=== PATIENT | female | born 1995 | race Two or more races ===

== ENCOUNTER 2024-12-06 09:38 | Emergency (ER) | payer BC, OTHER ==
[~2024-12-06] VITALS: Ht 165.1 cm; Wt 69.5 kg
[2024-12-06 10:21] VITALS: BP 119/85; PULSE 90; RESP 18; TEMP 98.4; O2SAT 96
[2024-12-06 11:20] LABS: Urine Protein, UAD Negative (Negative)
== END 2024-12-06 11:03 | disposition left against medical advice (07) ==
LOC: ER 09:38
DX: R10.9 Unspecified abdominal pain (principal); Z53.21 Procedure and treatment not carried out due to patient leaving prior to being seen by health care provider
CPT/HCPCS: 81001

== ENCOUNTER 2024-12-08 06:35 | Emergency (ER) | payer BC ==
[~2024-12-08] VITALS: Ht 165.1 cm; Wt 66.5 kg
--- NOTE | 2024-12-08 06:58 | ED.PDOC ---
History of Present Illness HPI Comments A 29 YEAR-OLD FEMALE PRESENTS TO THE ED WITH A CHIEF COMPLAINT OF PELVIC PAIN OF X3-4 DAYS AGO. PATIENT REPORTS THERE IS A POSSIBILITY OF . PATIENT STATES THAT SHE HAS A HISTORY OF CRAMPING WITH HER LMP NOTED 11/10/24. PATIENT STATES THAT PELVIC PAIN IS "SHARP", EXACERBATED WITH MOVEMENT, AND ASSOCIATED WITH URINARY RETENTION. PATIENT CAME TO THE ED X2 DAYS AGO FOR PELVIC PAIN BUT LEFT BEFORE MEETING WITH A PHYSICIAN. PATIENT HAS NO FURTHER COMPLAINTS AT THIS TIME AND OTHERWISE DENIES DYSURIA, HEMATURIA, N/V, FEVER, OR CHILLS. PATIENT IS ALERT, ORIENTED X 4, AND HAS STEADY GAIT. Chief Complaint: Pelvic Pain Time Seen by MD: 06:50 Reviewed Notes: Nurses Notes, Medications, Allergies Allergies: Coded Allergies: NO KNOWN ALLERGIES (Unverified , 12/06/24) Information Source: Patient Mode of Arrival: Ambulatory Severity: Mild Timing: Days Duration: Since onset Location: PELVIS Worsens MOVEMENT Associated signs and symptoms URINARY RETENTION, PELVIC PAIN Past Medical History PAST MEDICAL HISTORY: Denies Surgical History: Denies all surgeries DATA MANAGEMENT CONSULTANT History: No Pertinent DATA MANAGEMENT CONSULTANT History Family History Family History: Reviewed,noncontributory to illness, No family hx of Cancer, No family hx of DM, No family hx of Heart sixto, No family hx of HTN, No family hx ofKidney sixto, No family hx of Liver sixto, No family hx of Lung sixto, No family hx of Stroke Social History Smoker: Non-Smoker Alcohol: Denies ETOH Use Drugs: Denies Drug Use Lives In: Home Constitutional: denies: chills, diaphoresis, fatigue, fever, malaise, sweats, weakness, others EENTM: denies: blurred vision, double vision, ear bleeding, ear discharge, ear drainage, ear pain, ear ringing, eye pain, eye redness, hearing loss, mouth pain, mouth swelling, nasal discharge, nose bleeding, nose congestion, nose pain, photophobia, tearing, throat pain, throat swelling, voice changes, others Respiratory: denies: cough, hemoptysis, orthopnea, SOB at rest, shortness of breath, SOB with excertion, stridor, wheezing, others Cardiovascular: denies: chest pain, dizzy spells, diaphoresis, Dyspnea on exertion, edema, irregular heart beat, left arm pain, lightheadedness, palpitations, PND, syncope, others Gastrointestinal: denies: abdomen distended, abdominal pain, blood streaked bowels, constipated, diarrhea, dysphagia, difficulty swallowing, hematemesis, melena, nausea, poor appetite, poor fluid intake, rectal bleeding, rectal pain, vomiting, others Genitourinary: reports: pain (PELVIC PAIN ), others (Urinary Retention ); denies: abnormal vagina bleeding, burning, dyspareunia, dysuria, flank pain, frequency, hematuria, incontinence, , vagina discharge, urgency Neurological: denies: dizziness, fainting, headache, left sided numbness, left sided weakness, numbness, paresthesia, pre-existing deficit, right sided numbness, right sided weakness, seizure, speech problems, tingling, tremors, weakness, others Musculoskeletal: denies: back pain, gout, joint pain, joint swelling, muscle pain, muscle stiffness, neck pain, others Integumetry: denies: bruises, change in color, change in hair/nails, dryness, laceration, lesions, lumps, rash, wounds, others Allergic/Immunocompromised: denies: Difficulty Healing, Frequent Infections, Hives, Itching, others Hematologic/Lymphatic: denies: anemia, blood clots, easy bleeding, easy bruising, swollen glands, others Endocrine: denies: excessive hunger, excessive sweating, excessive thirst, excessive urination, flushing, intolerance to cold, intolerance to heat, unexplained weight gain, unexplained weight loss, others Psychiatric: denies: anxiety, bipolar disorder, depression, hopeless, panic disorder, schizophrenia, sleepless, suicidal, others All Other Systems: Reviewed and Negative Physical Exam General Appearance: No Apparent Distress, Normal HEENT: Normal ENT Inspection, PERRL/EOMI, Pharynx Normal, TMs Normal Neck: Full Range of Motion, Non-Tender, Normal, Normal Inspection Respiratory: Chest Non-Tender, Lungs Clear, No Accessory Muscle Use, No Respiratory Distress, Normal Breath Sounds Cardiovascular: No Edema, No JVD, No Murmur, No Gallop, Normal Peripheral Pulses, Regular Rate/Rhythm Breast Exam: Deferred Gastrointestinal: No Organomegaly, Non Tender, No Pulsatile Mass, Normal Bowel Sounds, Soft Genitalia: Deferred Pelvic: Normal External Exam, Tender Adnexa (TENDERNESS PELVIC, NO GUARDING AND REBOUND TENDERNESS. ), Tender Uterus Rectal: Deferred Extremities: No calf tenderness, Normal capillary refill, Normal inspection, Normal range of motion, Non-tender, No pedal edema Musculoskeletal : Apperance: Normal Neurologic: Alert, kettle operator II-XII nml as Tested, No Motor Deficits, Normal Affect, Normal Mood, No Sensory Deficits Cerebellar Function: Normal Reflexes: Normal Skin: Dry, Normal Color, Warm Peripheral Pulses: 2+ carotid (R), 2+ carotid (L) Lymphatic: No Adenopathy Was a procedure done? Was a procedure done?: No Differential Dx Considerations may include: , CRAMPING, UTI, URINARY RETENTION X-Ray, Labs, Meds, VS Vital Signs Date Time Temp Pulse Resp B/P (MAP) Pulse Ox O2 Delivery O2 Flow Rate FiO2 12/08/24 07:47 83 16 99 Room Air* 0 21 12/08/24 07:47 98.5 83 16 131/78 (95) 99 98.5 12/08/24 06:54 98.4 97 18 110/84 (93) 99 98.4 Lab Test 12/08/24 07:00 12/08/24 06:40 Range/Units White Blood Count 7.9 4.4-10.8 10^3/uL Red Blood Count 4.62 4.0-5.20 10^6/uL Hemoglobin 14.6 12.2-16.2 g/dL Hematocrit 41.9 36.0-46.0 % Mean Corpuscular Volume 90.8 80.0-100.0 fL Mean Corpuscular Hemoglobin 31.7 28.0-32.0 pg Mean Corpuscular Hemoglobin Concent 34.9 32.0-36.0 g/dL Red Cell Distribution Width 12.8 11.8-14.3 % Platelet Count 273 140-450 10^3/uL Mean Platelet Volume 8.3 6.9-10.8 fL Neutrophils (%) (Auto) 60.8 37.0-80.0 % Lymphocytes (%) (Auto) 28.8 10.0-50.0 % Monocytes (%) (Auto) 7.5 0.0-12.0 % Eosinophils (%) (Auto) 1.8 0.0-7.0 % Basophils (%) (Auto) 1.1 0.0-2.0 % Neutrophils # (Auto) 4.8 1.6-8.6 10 ^3/uL Lymphocytes # (Auto) 2.3 0.4-5.4 10 ^3/uL Monocytes # (Auto) 0.6 0-1.3 10 ^3/uL Eosinophils # (Auto) 0.1 0-0.8 10 ^3/uL Basophils # (Auto) 0.1 0-0.2 10 ^3/uL Nucleated Red Blood Cells 0.0 % Sodium Level 138 136-145 mmol/L Potassium Level 3.8 3.5-5.1 mmol/L Chloride Level 104 98-107 mmol/L Carbon Dioxide Level 26 20-31 mmol/L Anion Gap 8 5-15 Blood Urea Nitrogen 7 L 9-23 mg/dL Creatinine 0.72 0.550-1.02 mg/dL Glomerular Filtration Rate Calc 116 >90 mL/min BUN/Creatinine Ratio 9.7 L 10.0-20.0 Serum Glucose 90 74-106 mg/dL Calcium Level 10.1 8.7-10.4 mg/dL Beta HCG, Quantitative 1446.7 H 1.5-4.2 mIU/mL Urine Color Colorless Yellow Urine Clarity Clear Clear Urine pH 7.5 5.0-9.0 Urine Specific [place] 1.006 1.001-1.035 Urine Protein Negative Negative Urine Ketones Negative Negative Urine Blood Negative Negative /uL Urine Nitrite Negative Negative Urine Bilirubin Negative Negative Urine Urobilinogen Normal Negative mg/dL Urine Leukocyte Esterase 3+ Negative /uL Urine RBC 1 0 - 4 /hpf Urine Microscopic WBC 10 H 0-5 /HPF Urine Squamous Epithelial Cells Few <5 /hpf Urine Bacteria Few H None Seen /hpf Urine Glucose Normal Normal mg/dL PATIENT: FERNIE RICKETTSACCT: [id number]: [id number] : 1995 LOC: ER ROOM / BED: / AGE / SEX: 29 / F ADM STATUS: REG ER SERVICE [id number] ORDERING PHYSICIAN: ZULMA YANG PROCEDURE(s): OB4US - OB ULTRASOUND COMP LESS 14WKS REASON: PELVIC PAIN, BETA-HC.7 ORDER NUMBER(s): [id number], ACCESSION NUMBER(s): [id number] EXAM: US OB ULTRASOUND COMP LESS 14WKS HISTORY: PELVIC PAIN, BETA-HC.7 COMPARISON: None TECHNIQUE: Transabdominal and transvaginal early OB ultrasound was performed. FINDINGS/IMPRESSION: 1. No evidence of viable intrauterine . There is endometrial thickening with small cystic structures of the endometrium. Recommend correlation with serial beta HCG measurements. If the patient's beta HCG increases, follow-up outpatient nonemergent ob ultrasound examination would be warranted. 2. Moderate volume free fluid in the pelvis. There is likely debris versus blood products in the pelvic fluid. 3. Both ovaries demonstrate normal color doppler blood flow. ATED BY: ISATU SIMON MD DICTATED DATE/TIME: 12/08/24830 SIGNED BY: ISATU SIMON MD SIGNED DATE/TIME: 12/08/24830 CC: X-Ray, Labs, Meds, VS Comment EXTERNAL MEDICAL RECORDS: NONE INDEPENDENT HISTORIANS: NONE SOCIAL DETERMINANTS OF HEALTH: NONE LABS ORDERED: URINALYSIS, BLOOD COUNT, METABOLIC PANEL, BETA HCG REVIEWED AND INTERPRETED RESULTS: NONE IMAGING ORDERED: OB ULTRASOUND TREATMENTS ORDERED: NONE PATIENT'S CASE AND RESULTS HAVE BEEN DISCUSSED WITH THE ED ATTENDING PHYSICIAN, DR. HUGHES AND THEY AGREE WITH MY PLAN OF CARE. I HAVE DISCUSSED IMAGING AND LAB RESULTS WITH THE PATIENT AND HAVE INSTRUCTED THE PATIENT TO FOLLOW UP WITH THEIR PCP IN 1-2 DAYS. THE PATIENT FULLY UNDERSTANDS THEIR RESULTS AND ARE AWARE THEY NEED TO FOLLOW UP WITH THEIR PCP FOR FURTHER EVALUATION IF THEIR SYMPTOMS PERSIST. Images Reviewed?: Images reviewed and evaluated by me Time of 1ST Reevaluation: 08:47 Reevaluation 1ST: Improved Patient Education/Counseling: Diagnosis, Treatment, Need For Follow Up Family Education/Counseling: Diagnosis, Treatment, Need For Follow Up Medical Screening: No EMC Exist At This Time SEPSIS Sepsis Screen Physician Orders Ob Ultrasound Comp Less 14wks (12/08/24 07:53) Vital Signs Date Time Temp Pulse Resp B/P (MAP) Pulse Ox O2 Delivery O2 Flow Rate FiO2 12/08/24 07:47 83 16 99 Room Air* 0 21 12/08/24 07:47 98.5 83 16 131/78 (95) 99 98.5 12/08/24 06:54 98.4 97 18 110/84 (93) 99 98.4 Laboratory Tests Test 12/08/24 07:00 White Blood Count 7.9 10^3/uL (4.4-10.8) Departure 1 Departure Time of Disposition: 09:00 Impression: Primary Impression: Early stage of Additional Impression: Acute cystitis Qualified Codes: N30.00 - Acute cystitis without hematuria Disposition: 01 HOME / SELF CARE / HOMELESS Condition: Stable Additional Instructions: FOLLOW-UP WITH WEB APPLICATION TESTER OR ER TO RECHECK BETA-HCG IN 2 DAYS. TAKE MEDICATIONS PRESCRIBED. RETURN TO ED FOR ANY NEW OR WORSENING SYMPTOMS. e-Prescriptions Nitrofurantoin Monohydrate Mac (Macrobid) 100 Mg Cap 100 MG PO BID, #14 CAP Prov: CELIABRICEXIA PA 12/08/24 Discharged With: Self Critical Care Note Critical Care Time?: No Stability Stability form required: No Heart Score Heart Score: Heart Score Response (Comments) Value History N/A 0 EKG N/A 0 Age N/A 0 Risk Factors N/A 0 Troponin N/A 0 Total 0 I personally scribed for CELIA,YINXIA PA ([email or web address]) on 12/08/24 at 06:58. Electronically submitted by Amelie Bowers ([email or web address]). I personally scribed for CELIA,YINXIA PA ([email or web address]) on 12/08/24 at 07:00. Electronically submitted by Amelie Bowers (Sik[employer]). I personally scribed for CELIA,YINXIA PA ([email or web address]) on 12/08/24 at 07:05. Electronically submitted by Amelie Bowers ([employer]). I personally scribed for CELIA,YINXIA PA ([email or web address]) on 12/08/24 at 07:20. Electronically submitted by Amelie Bowers ([employer]). I personally scribed for CELIA,YINXIA PA ([email or web address]) on 12/08/24 at 07:27. Electronically submitted by Amelie Bowers ([employer]). I personally scribed for CELIA,YINXIA PA ([email or web address]) on 12/08/24 at 07:37. Electronically submitted by Amelie Bowers ([employer]). I personally scribed for CELIA,YINXIA PA ([email or web address]) on 12/08/24 at 07:55. Electronically submitted by mAelie Bowers ([facility]). ZULMA YANG Dec 08, 2024 06:58
[2024-12-08 07:13] LABS: Hematocrit 41.9 % (36.0-46.0); Hemoglobin 14.6 g/dL (12.2-16.2); Mean Corpuscular Hemoglobin 31.7 pg (28.0-32.0); Mean Corpuscular Volume 90.8 fL (80.0-100.0); Nucleated Red Blood Cells % 0.0 %
[2024-12-08 07:30] LABS: Chloride 104 mmol/L (98-107); Potassium 3.8 mmol/L (3.5-5.1); Sodium 138 mmol/L (136-145)
[2024-12-08 07:31] LABS: Anion Gap 8 (5-15); Calcium 10.1 mg/dL (8.7-10.4); Carbon Dioxide 26 mmol/L (20-31)
[2024-12-08 07:36] LABS: BUN/Creatinine Ratio 9.7 (10.0-20.0); Glucose 90 mg/dL (74-106)
[2024-12-08 07:38] LABS: Blood Urea Nitrogen 7 mg/dL (9-23)
[2024-12-08 07:45] LABS: Urine Protein, UAD Negative (Negative)
[2024-12-08 07:47] VITALS: BP 131/78; PULSE 83; RESP 16; TEMP 98.5; O2SAT 99
--- NOTE | 2024-12-08 08:34 | DVH ---
EXAM: US OB ULTRASOUND COMP LESS 14WKS HISTORY: PELVIC PAIN, BETA-HC.7 COMPARISON: None TECHNIQUE: Transabdominal and transvaginal early OB ultrasound was performed. FINDINGS/IMPRESSION: 1. No evidence of viable intrauterine . There is endometrial thickening with small cystic s tructures of the endometrium. Recommend correlation with serial beta HCG measurements. If the patien t's beta HCG increases, follow-up outpatient nonemergent ob ultrasound examination would be warranted . 2. Moderate volume free fluid in the pelvis. There is likely debris versus blood products in the pelv ic fluid. 3. Both ovaries demonstrate normal color doppler blood flow.
[2024-12-08] MEDS ORDERED: NITR-87 PO (08:47)
== END 2024-12-08 08:45 | disposition home or self-care (01) ==
LOC: ER 06:35
DX: O23.11 Infections of bladder in pregnancy, first trimester (principal); R10.2 Pelvic and perineal pain; Z3A.00 Weeks of gestation of pregnancy not specified
CPT/HCPCS: 36415; 76801; 80048; 81001; 84702; 85025

== ENCOUNTER 2024-12-11 08:05 | Emergency (ER) | payer BC ==
[~2024-12-11] VITALS: Ht 165.1 cm; Wt 68.8 kg
[~2024-12-11 08:05] MED LIST: NITR-87 PO
--- NOTE | 2024-12-11 09:20 | ED.PDOC ---
History of Present Illness HPI Comments 29 year old female presents to the ED for the c/c of wanting to recheck her Beta Quant Levels. Pt states that she was recently told that she was on 11/08/24 and wanted to Re-check values to see if they were correct. Pt was noted to have a HCG Beta Quant level of 1446.7. Pt denies any ABD pain, Cramping, or Abnormal Vaginal Bleeding at this time. FINDINGS/IMPRESSION: From 11/08/24 1. No evidence of viable intrauterine . There is endometrial thickening with small cystic structures of the endometrium. Recommend correlation with serial beta HCG measurements. If the patient's beta HCG increases, follow-up outpatient nonemergent ob ultrasound examination would be warranted. 2. Moderate volume free fluid in the pelvis. There is likely debris versus blood products in the pelvic fluid. 3. Both ovaries demonstrate normal color doppler blood flow. Chief Complaint: Abnormal LAB's Time Seen by MD: 09:16 Primary Care Provider: Aysha Fairbanks Notes: Nurses Notes, Medications, Allergies Allergies: Coded Allergies: NO KNOWN ALLERGIES (Unverified , 12/06/24) Home Meds Active Scripts Nitrofurantoin Monohydrate Mac (Macrobid) 100 Mg Cap, 100 MG PO BID, #14 CAP Prov:ZULMA YANG 12/08/24 Information Source: Patient Mode of Arrival: Ambulatory Severity: None Timing: Days Duration: Since onset, Days Prehospital treatment: None Past Medical History PAST MEDICAL HISTORY: Denies Surgical History: Denies all surgeries OTTER TRAWLER [place] History: No Pertinent OTTER TRAWLER [place] History Family History Family History: Reviewed,noncontributory to illness, No family hx of Cancer, No family hx of DM, No family hx of Heart sixto, No family hx of HTN, No family hx ofKidney sixto, No family hx of Liver sixto, No family hx of Lung sixto, No family hx of Stroke Social History Smoker: Non-Smoker Alcohol: Denies ETOH Use Drugs: Denies Drug Use Lives In: Home Constitutional: denies: chills, diaphoresis, fatigue, fever, malaise, sweats, weakness, others EENTM: denies: blurred vision, double vision, ear bleeding, ear discharge, ear drainage, ear pain, ear ringing, eye pain, eye redness, hearing loss, mouth pain, mouth swelling, nasal discharge, nose bleeding, nose congestion, nose pain, photophobia, tearing, throat pain, throat swelling, voice changes, others Respiratory: denies: cough, hemoptysis, orthopnea, SOB at rest, shortness of breath, SOB with excertion, stridor, wheezing, others Cardiovascular: denies: chest pain, dizzy spells, diaphoresis, Dyspnea on exertion, edema, irregular heart beat, left arm pain, lightheadedness, palpitations, PND, syncope, others Gastrointestinal: denies: abdomen distended, abdominal pain, blood streaked bowels, constipated, diarrhea, dysphagia, difficulty swallowing, hematemesis, melena, nausea, poor appetite, poor fluid intake, rectal bleeding, rectal pain, vomiting, others Genitourinary: denies: abnormal vagina bleeding, burning, dyspareunia, dysuria, flank pain, frequency, hematuria, incontinence, pain, , vagina discharge, urgency, others Neurological: denies: dizziness, fainting, headache, left sided numbness, left sided weakness, numbness, paresthesia, pre-existing deficit, right sided numbness, right sided weakness, seizure, speech problems, tingling, tremors, weakness, others Musculoskeletal: denies: back pain, gout, joint pain, joint swelling, muscle pain, muscle stiffness, neck pain, others Integumetry: denies: bruises, change in color, change in hair/nails, dryness, laceration, lesions, lumps, rash, wounds, others Allergic/Immunocompromised: denies: Difficulty Healing, Frequent Infections, Hives, Itching, others Hematologic/Lymphatic: denies: anemia, blood clots, easy bleeding, easy bruising, swollen glands, others Endocrine: denies: excessive hunger, excessive sweating, excessive thirst, excessive urination, flushing, intolerance to cold, intolerance to heat, unexplained weight gain, unexplained weight loss, others Psychiatric: denies: anxiety, bipolar disorder, depression, hopeless, panic disorder, schizophrenia, sleepless, suicidal, others All Other Systems: Reviewed and Negative Physical Exam General Appearance: No Apparent Distress, Normal HEENT: Normal ENT Inspection, Pharynx Normal, TMs Normal Neck: Full Range of Motion, Non-Tender, Normal, Normal Inspection Respiratory: Chest Non-Tender, Lungs Clear, No Accessory Muscle Use, No Respiratory Distress, Normal Breath Sounds Cardiovascular: No Edema, No JVD, No Murmur, Normal Peripheral Pulses, Regular Rate/Rhythm Breast Exam: Deferred Gastrointestinal: Non Tender, No Pulsatile Mass, Normal Bowel Sounds, Soft Genitalia: Deferred Pelvic: Deferred Rectal: Deferred Extremities: No calf tenderness, Normal capillary refill, Normal inspection, Normal range of motion, Non-tender, No pedal edema Musculoskeletal : Apperance: Normal Neurologic: Alert, No Motor Deficits, Normal Affect, Normal Mood, No Sensory D eficits Cerebellar Function: Normal Reflexes: Normal Skin: Dry, Normal Color, Warm Lymphatic: No Adenopathy Was a procedure done? Was a procedure done?: No Differential Dx Considerations may include: Threatened , ectopic , X-Ray, Labs, Meds, VS Vital Signs Date Time Temp Pulse Resp B/P (MAP) Pulse Ox O2 Delivery O2 Flow Rate FiO2 12/11/24 10:09 71 16 100 Room Air 12/11/24 10:09 98.4 71 16 96/59 (71) 100 98.4 12/11/24 08:15 98.4 78 16 115/74 (88) 99 98.4 Lab Test 12/11/24 08:49 Range/Units Beta HCG, Quantitative 3961.7 H 1.5-4.2 mIU/mL X-Ray, Labs, Meds, VS Comment 29 year old female presents to the ED for the c/c of wanting to recheck her Beta Quant Levels. HC.7 Patient is stable for discharge at this time. External notes reviewed. Test results and diagnostic imaging interpreted. All diagnostic findings, discharge care, education and instructions provided Follow-up with PCP in 2 to 3 days Patient verbalized understanding and agreed to treatment plan Vital signs stable, afebrile, no acute distress noted Patient ambulatory with strong steady gait Advised to return precautions for any new or worsening symptoms, return to ER immediately for re-evaluation Patient is aware that the purpose of this visit was for an acute medical emergency requiring emergent stabilization. Chronic conditions, including malignancies have not been ruled out. Patient is instructed to follow up with PCP as directed and discharge instructions for continued care and workup. If unable to arrange follow-up, patient is to return to the emergency department for reassessment. Patient (parent or legal guardian if applicable) was given verbal and written discharge instructions and acknowledges understanding. Time of 1ST Reevaluation: 09:46 Reevaluation 1ST: Unchanged Patient Education/Counseling: Diagnosis, Treatment Family Education/Counseling: No Family Present SEPSIS Sepsis Screen Date sepsis recognized/suspect: Dec 11, 2024 Time Sepsis recognized/suspect: 08 Recent Procedure: No On Antibiotic Therapy: Yes Respiratory Rate >20: No Heart Rate >90: No Temp<36 C (96.8 F) or >38.3 C: No SBP <90 or MAP <65 mmHG: No New Acute Mental Status Change: No Is the patient on CPAP, BIPAP,: No Vital Signs Date Time Temp Pulse Resp B/P (MAP) Pulse Ox O2 Delivery O2 Flow Rate FiO2 12/11/24 10:09 71 16 100 Room Air 12/11/24 10:09 98.4 71 16 96/59 (71) 100 98.4 12/11/24 08:15 98.4 78 16 115/74 (88) 99 98.4 Departure 1 Departure Time of Disposition: 10:01 Impression: Primary Impression: Early stage of Disposition: 01 HOME / SELF CARE / HOMELESS Condition: Stable Additional Instructions: HC.7 Critical Care Note Critical Care Time?: No Stability Stability form required: No Heart Score Heart Score: Heart Score Response (Comments) Value History N/A 0 EKG N/A 0 Age N/A 0 Risk Factors N/A 0 Troponin N/A 0 Total 0 I personally scribed for IBRAHIMA LOONEY NP ([email or web address]) on 12/11/24 at 09:19. Electronically submitted by Skinny Cooper ([email or web address]). IBRAHIMA LOONEY NP Dec 11, 2024 09:19
[2024-12-11 10:09] VITALS: BP 96/59; PULSE 71; RESP 16; TEMP 98.4; O2SAT 100
== END 2024-12-11 10:11 | disposition home or self-care (01) ==
LOC: ER 08:05
DX: Z34.81 Encounter for supervision of other normal pregnancy, first trimester (principal); R93.89 Abnormal findings on diagnostic imaging of other specified body structures; Z3A.00 Weeks of gestation of pregnancy not specified
CPT/HCPCS: 36415; 84702

== ENCOUNTER 2024-12-25 09:31 | Outpatient (CLI) | payer BC ==
[2024-12-25 10:25] LABS: Hematocrit 41.9 % (36.0-46.0); Hemoglobin 14.7 g/dL (12.2-16.2); Mean Corpuscular Hemoglobin 31.9 pg (28.0-32.0); Mean Corpuscular Volume 90.7 fL (80.0-100.0); Nucleated Red Blood Cells % 0.0 %
[2024-12-25 12:59] LABS: Amphetamine Screen, Urine Neg (NEGATIVE); Barbiturate Scree,Urine Neg (NEGATIVE); Benzodiazephine Screen, Urine Neg (NEGATIVE); Cannabinoid Screen, Urine Neg (NEGATIVE); Cocaine Screen, Urine Neg (NEGATIVE); Opiate Scree,Urine Neg (NEGATIVE); Phencyclidine Screen, Urine Neg (NEGATIVE)
[2024-12-27 06:07] LABS: Chlamydia Trachomatis, NAA Negative (Negative); Neisseria gonorrhoeae, NAA Negative (Negative)
== END 2024-12-25 17:00 | disposition home or self-care (01) ==
LOC: LAB 09:31
DX: O23.40 Unspecified infection of urinary tract in pregnancy, unspecified trimester (principal); N39.0 Urinary tract infection, site not specified; Z31.430 Encounter of female for testing for genetic disease carrier status for procreative management; Z20.09 Contact with and (suspected) exposure to other intestinal infectious diseases; Z3A.00 Weeks of gestation of pregnancy not specified
CPT/HCPCS: 36415; 80307; 83036; 84144; 84702; 85025; 86703; 86762; 86780; 86850; 86900; 86901; 87086; 87340